=== PATIENT | male | born 1955 | race Caucasian/White ===

== ENCOUNTER 2018-04-22 17:10 | Emergency (ER) | payer BC, OTHER ==
[~2018-04-22] VITALS: Ht 175.3 cm; Wt 113.4 kg
[2018-04-22 17:30] VITALS: BP 143/60
[2018-04-22] MEDS ORDERED: cefTRIAXone SOD 1,000 MG VL IM ONE (19:15)
[2018-04-22] MEDS ORDERED: LIDOCAINE W/ EPINEPHRINE 1% 20ML VIAL ID ONE (19:30)
== END 2018-04-22 20:02 | disposition home or self-care (01) ==
LOC: ER 17:17
DX: S61.211A Laceration without foreign body of left index finger without damage to nail, initial encounter (principal); Z91.041 Radiographic dye allergy status; W26.0XXA Contact with knife, initial encounter; Y93.89 Activity, other specified; Y92.090 Kitchen in other non-institutional residence as the place of occurrence of the external cause; Y99.8 Other external cause status
CPT/HCPCS: 12001; 96372; 99283; J0696